=== PATIENT | female | born 2000 | race Caucasian/White ===

== ENCOUNTER 2019-06-14 14:33 | Emergency (ER) | payer OTHER ==
[~2019-06-14] VITALS: Ht 160 cm; Wt 70.5 kg
[2019-06-14 19:10] VITALS: BP 134/77
[2019-06-14 20:07] LABS: BASO % 0.4 % (0.0-1.0); EOS # 0.1 10^3/uL (0.0-0.50); EOS % 1.1 % (0.0-3.0); HEMOGLOBIN 13.4 g/dl (12.0-15.5); LYMPH # 2.2 10^3/uL (1.5-6.5); MEAN CORPUSCULAR HGB CONC 33.5 g/dl (32.0-36.5); MEAN CORPUSCULAR VOLUME 95.5 fl (80.0-96.0); MONO # 1.4 10^3/uL (0.0-0.8); MONO % 13.1 % (0.0-5.0); NEUTROPHILS # 6.7 10^3/uL (1.8-7.7); NEUTROPHILS % 64.1 % (36.0-66.0); PLATELET COUNT, AUTOMATED 232 10^3/uL (150-450); RED BLOOD COUNT 4.19 10^6/uL (4.00-5.40); WHITE BLOOD COUNT 10.4 10^3/uL (4.0-10.0)
[2019-06-14 20:31] LABS: MONO REFLEX EBV COMP NEGATIVE (NEGATIVE)
[2019-06-14] MEDS ORDERED: PENI500T PO (20:40)
[2019-06-14 20:56] LABS: HCG, SERUM QUALITATIVE NEGATIVE (NEGATIVE)
[2019-06-18 00:06] LABS: EBV VIRAL CAPSID AG IgG >600.0 U/mL (0.0-17.9); EBV VIRAL CAPSID AG IgM <36.0 U/mL (0.0-35.9)
== END 2019-06-14 21:17 | disposition home or self-care (01) ==
LOC: M ED 14:33
DX: J02.9 Acute pharyngitis, unspecified (principal); J03.90 Acute tonsillitis, unspecified; J35.1 Hypertrophy of tonsils; R09.81 Nasal congestion; Z72.0 Tobacco use

== ENCOUNTER → 2019-08-26 | Outpatient (CLI) | payer OTHER ==
[~2019-08-26] MED LIST: PENI500T PO
--- NOTE | 2019-08-26 12:00 | REP ---
TRIPLE PHASE BONE SCAN LOW LEGS: Following the intravenous administration of 22 mCi of technetium-99m MDP, patient's lower legs are imaged in the flow phase in the anterior and posterior projections followed by blood pool and 3 hour delayed images in multiple projections. There is no abnormal blood pooling bilaterally. Delayed images show somewhat heterogeneous linear uptake along the tibial shafts compatible with stress periostitis or guillaume splints. There is a small focus of increased uptake in the distal right tibia medially compatible with a focal stress fracture at least 6 to 8 weeks of age. IMPRESSION: Findings compatible with bilateral stress periostitis of the tibias, or guillaume splints. Small focal stress fracture distal right tibia medially at least 6 to 8 weeks of age. Electronically Signed by Flavio Nevarez MD 08/27/2019 04:07 P
== END ==
LOC: M RAD 07:16
PROVIDERS: ATTEND Physician Assistant Medical
DX: M79.605 Pain in left leg (principal)
CPT/HCPCS: 78315; A9503